=== PATIENT | female | born 1990 | race Caucasian/White ===

== ENCOUNTER 2019-05-04 10:23 | Emergency (ER) | payer OTHER ==
[~2019-05-04] VITALS: Ht 167.6 cm; Wt 73.9 kg
[2019-05-04] MEDS ORDERED: SPIRONOLACTONE50 MG PO (10:32)
[2019-05-04] MEDS ORDERED: LOPRESSOR50 PO (10:32)
[2019-05-04 11:08] LABS: ABSOLUTE EOSINOPHILS 0.1 thou/uL (0.0-0.7); ABSOLUTE LYMPHOCYTES 2.3 thou/uL (0.8-5.3); ABSOLUTE MONOCYTES 0.4 thou/uL (0.0-1.2); ABSOLUTE NEUTROPHILS 5.9 thou/uL (1.6-8.1); BASOPHILS 0.3 %; EOSINOPHILS 1.3 %; HEMATOCRIT 43.5 % (37.0-47.0); HEMOGLOBIN 15.1 gm/dL (12.0-15.0); LYMPHOCYTES 26.8 %; MCH 31.2 pg (26.0-34.0); MCHC 34.6 g/dL (28.0-37.0); MCV 90.3 fL (80.0-100.0); MPV 7.8 fl. (7.2-11.1); NUCLEATED RBCS 0 /100WBC; PLATELET COUNT* 310 thou/uL (150-400); POLYS 66.6 %; RBC 4.82 mil/uL (4.20-5.00); RDW-CV 12.7 % (10.5-14.5); WBC 8.8 thou/uL (4.0-11.0)
[2019-05-04 11:16] LABS: CALCIUM 8.8 mg/dL (8.5-10.1); CREATININE 0.8 mg/dL (0.6-1.3); POTASSIUM 4.1 mmol/L (3.5-5.1)
[2019-05-04 11:20] LABS: ALBUMIN 3.4 g/dL (3.4-5.0); TOTAL BILIRUBIN 0.4 mg/dL (<0.1-1.0); TOTAL PROTEIN 7.3 g/dL (6.4-8.2)
[2019-05-04 12:01] LABS: URINE BILIRUBIN NEGATIVE (Negative); URINE BLOOD 3+ (Negative); URINE CLARITY CLEAR; URINE COLOR YELLOW; URINE GLUCOSE-RANDOM NEGATIVE (Negative); URINE KETONES NEGATIVE (Negative); URINE LEUKOCYTES-REFLEX TRACE (Negative); URINE NITRITE-REFLEX NEGATIVE (Negative); URINE PROTEIN NEGATIVE (Negative); URINE SPECIFIC GRAVITY <= 1.005 (1.005-1.030); URINE UROBILINOGEN 0.2 E.U./dl (0.2-1.0)
[2019-05-04 12:19] LABS: BACTERIA-REFLEX >30 Many /HPF (None Seen); CASTS None Seen /LPF (None Seen); MUCUS 0-3 Light strn/LPF (None Seen); SQUAMOUS >10 Many /LPF (0-3); URINE RBC 3-10 Few /HPF (0-2); URINE WBC-REFLEX 6-15 Few /HPF (0-5)
[2019-05-04 12:20] LABS: CRYSTALS None Seen /LPF (None Seen)
[2019-05-04] MEDS ORDERED: KEFLEX500 M1 PO ×2 (12:53→12:55)
[2019-05-04] MEDS ORDERED: ZOFRAN ODT4 MG DISSOLVE (12:53)
[2019-05-04] MEDS ORDERED: NORCO 5-325 TA1 EAC1 PO (12:53)
[2019-05-04 13:17] VITALS: BP 115/66
== END 2019-05-04 13:20 | disposition home or self-care (01) ==
LOC: M.ERS 10:23
PROVIDERS: Emergency Medicine Emergency Medical Services
DX: N39.0 Urinary tract infection, site not specified (principal); I10 Essential (primary) hypertension; Z88.1 Allergy status to other antibiotic agents; Z88.8 Allergy status to other drugs, medicaments and biological substances

== ENCOUNTER 2019-11-02 20:46 | Emergency (ER) | payer OTHER ==
[~2019-11-02] VITALS: Ht 167.6 cm; Wt 72.6 kg
[~2019-11-02 20:46] MED LIST: KEFLEX500 M1 PO; LOPRESSOR50 PO; NORCO 5-325 TA1 EAC1 PO; SPIRONOLACTONE50 MG PO; ZOFRAN ODT4 MG DISSOLVE
[2019-11-02] MEDS ORDERED: EFFEXOR XR150 MG PO (21:09)
[2019-11-02] MEDS ORDERED: PROGESTERO50 MG/1 M3 PO (21:10)
[2019-11-02] MEDS ORDERED: IBU600 MG PO (21:16)
[2019-11-02] MEDS ORDERED: SSD CREAM 1% 5050 GM TOP (21:16)
[2019-11-02] MEDS ORDERED: NORCO 5-325 TA1 EAC1 PO (21:24)
[2019-11-02 21:43] VITALS: BP 172/105
== END 2019-11-02 21:45 | disposition home or self-care (01) ==
LOC: M.ERS 20:46
DX: T23.201A Burn of second degree of right hand, unspecified site, initial encounter (principal); T23.202A Burn of second degree of left hand, unspecified site, initial encounter; T31.0 Burns involving less than 10% of body surface; I10 Essential (primary) hypertension; Z88.1 Allergy status to other antibiotic agents; Z88.8 Allergy status to other drugs, medicaments and biological substances; X19.XXXA Contact with other heat and hot substances, initial encounter; Y93.89 Activity, other specified; Y92.89 Other specified places as the place of occurrence of the external cause; Y99.8 Other external cause status